=== PATIENT | male | born 1990 | race Caucasian/White ===

== ENCOUNTER 2017-03-30 19:19 | Emergency (ER) | payer OTHER ==
[~2017-03-30] VITALS: Ht 172.7 cm; Wt 60.0 kg
[~2017-03-30 19:19] MED LIST: NORCO 5/3251 TABLET PO
[2017-03-30 20:17] VITALS: BP 000/00
== END 2017-03-30 20:17 | disposition left against medical advice (07) ==
LOC: EME 19:19
DX: F13.229 Sedative, hypnotic or anxiolytic dependence with intoxication, unspecified (principal); F12.10 Cannabis abuse, uncomplicated; Z59.0 Homelessness; F17.200 Nicotine dependence, unspecified, uncomplicated
CPT/HCPCS: 80048; 85027; 90837; 99281; 99284; G0480